=== PATIENT | male | born 1985 | race African-American/Black ===

== ENCOUNTER 2020-09-30 09:09 | Inpatient (IN) | payer MEDICAID ==
[~2020-09-30] VITALS: Ht 177.8 cm; Wt 72.6 kg
--- NOTE | 2020-09-30 09:09 | NUR ---
PT WALKED INTO ER WITH KNOWN COVID +, SOB AND WEAKNESS FOR A WEEK, ON ARRIVAL RA 84%, TACHYPNIC AND USING ACCESSORY MUSCLE. Addendum: 09/30/20 at 1032 by TRAE PT ALSO COUGHING FOR A WEEK.
[2020-09-30] MEDS ORDERED: DEXAMETHASONE SOD PHOSPHATE 4 MG INJ IV ONE (09:30)
[2020-09-30] MEDS ORDERED: DEXAMETHASONE SOD PHOSPHATE 4 MG INJ ONE (09:38)
[2020-09-30 09:56] LABS: BASOPHILS # (AUTO) 0.1 K/uL (0.0-8.0); BASOPHILS % (AUTO) 0.8 % (0.0-2.0); HEMATOCRIT 43.4 % (36.7-47.1); HEMOGLOBIN 14.7 g/dL (12.5-16.3); LYMPHOCYTES # (AUTO) 0.6 K/uL (20.0-40.0); LYMPHOCYTES % (AUTO) 5.8 % (20.5-51.5); MEAN CORPUSCULAR HEMOGLOBIN 27.4 uug (23.8-33.4); MEAN CORPUSCULAR HGB CONC 34 g/dL (32.5-36.3); MEAN CORPUSCULAR VOLUME 80.8 fL (73.0-96.2); MONOCYTES # (AUTO) 0.7 K/uL (2.0-10.0); MONOCYTES % (AUTO) 6.5 % (0.0-11.0); NEUTROPHILS # (AUTO) 9.1 K/uL (1.8-8.9); NEUTROPHILS % (AUTO) 86.9 % (38.5-71.5); PLATELET COUNT (AUTO) 300 K/uL (152-348); RED BLOOD CELL COUNT(AUTO) 5.37 MIL/uL (4.06-5.63); WHITE BLOOD COUNT (AUTO) 10.5 K/uL (3.6-10.2)
--- NOTE | 2020-09-30 10:00 | NUR ---
O2 SAT IMPROVED TO 99% WITH SIMPLE MASK, 5 LITRE OF O2. PT SEEMS MORE COMFORTABLE, KEEP MONITORING THE PT.
[2020-09-30 10:11] LABS: BILIRUBIN,DIRECT 0.1 mg/dL (0.0-0.2); BILIRUBIN,TOTAL 0.4 mg/dL (0.2-1.0); POTASSIUM 4.6 mmol/L (3.5-5.1); TOTAL PROTEIN, SERUM 8.8 g/dL (6.4-8.2)
--- NOTE | 2020-09-30 10:24 | NUR ---
DR. AMOS ACCEPTED THE PT TO TELE.
[2020-09-30] MEDS ORDERED: ACETAMINOPHEN 325 MG TABLET PO PRN (11:15)
[2020-09-30] MEDS ORDERED: ONDANSETRON 4 MG/2 ML VIAL IV PRN (11:15)
[2020-09-30] MEDS ORDERED: ALBUTEROL SULFATE 8 GM HFA.AER.AD IH PRN (11:15)
[2020-09-30] MEDS: ENOXAPARIN SODIUM 40 MG/0.4 ML DISP.SYRIN SQ SCH (11:26)
[2020-09-30] MEDS ORDERED: ENOXAPARIN SODIUM 40 MG/0.4 ML DISP.SYRIN SQ ONE (11:28)
[2020-09-30] MEDS ORDERED: AZITHROMYCIN 500MG/ D5W 250ML IVPB **ER PYXIS ONLY IV ONE (11:29)
[2020-09-30] MEDS: AZITHROMYCIN IV 500 MG in IV DEXTROSE 5% 250 ML IV SCH (11:30)
[2020-09-30] MEDS: ASPIRIN EC 81 MG TABLET.DR PO SCH (11:40)
[2020-09-30] MEDS ORDERED: ASPIRIN EC 81 MG TABLET.DR PO ONE (11:40)
[2020-09-30] MEDS ORDERED: PANTOPRAZOLE SODIUM 40 MG TABLET.DR PO ONE (11:43)
[2020-09-30] MEDS: PANTOPRAZOLE SODIUM 40 MG TABLET.DR PO SCH (11:46)
[2020-09-30 11:54] LABS: *BILIRUBIN,URIN NEGATIVE (NEGATIVE); *BLOOD, URINE NEGATIVE (NEGATIVE); *CLARITY,URINE CLEAR (CLEAR); *COLOR,URINE YELLOW (YELLOW); *KETONES,URINE NEGATIVE (NEGATIVE); *UROBILINOGEN,URINE 0.2 E.U./dl (NORMAL); LEUKOCYTE ESTERASE ,URINE NEGATIVE (NEGATIVE); NITRITE, URINE NEGATIVE (NEGATIVE); UGLUCOSE NEGATIVE (NEGATIVE)
--- NOTE | 2020-09-30 12:13 | NUR ---
transfered pt to floor in stable condition.
--- NOTE | 2020-09-30 12:45 | NUR ---
1205pm- Admitted to telemetry a 35 y.o male patient from ER with Dx: Covid and Acute hypoxemic respiratory failure. Patient is alert, oriented x4, able to make needs known. Denies pain. Breathing is even and non labored. No sob noted. On 6Lpm via simple mask, O2 saturation noted 100%. VS taken upon admission: Bp 124/77 RR20 P80 T100.8 O2 100%. Cooling measures initiated. Patient able to make needs known and encouraged to call for help if needed. Call light put within reach. Safety precautions in place. Needs attended. Will continue to monitor.
[2020-09-30] MEDS ORDERED: DEXA4TAB PO (14:59)
[2020-09-30] MEDS ORDERED: ALBU8HFA4 INH (14:59)
--- NOTE | 2020-09-30 15:44 | NUR ---
Patient's temperature rechecked and noted 98.6 degrees. Cooling measures effective. Will continue to monitor.
[2020-09-30 15:54] VITALS: BP 122/79
[2020-09-30] MEDS ORDERED: GUAIFENESIN/DEXTROMETHORPHAN 5 ML UDC PO PRN (16:45)
[2020-09-30 20:03] VITALS: BP 114/74
--- NOTE | 2020-09-30 21:00 | NUR ---
Received patient AAOx4. No s/s of acute distress noted at this time. Pt on 6L simple mask with O2 @ 100% denies SOB. special distribution clerk on place. Safety and isolation precautions in place.
[2020-10-01 00:12] VITALS: BP 110/69
[2020-10-01] MEDS: HYDROCODONE/APAP 5-325MG TABLET PO PRN ×3 (00:35→23:08)
[2020-10-01 04:15] VITALS: BP 106/72
[2020-10-01] MEDS: PANTOPRAZOLE SODIUM 40 MG TABLET.DR PO SCH (06:13)
[2020-10-01 06:18] LABS: BASOPHILS % (AUTO) 0.1 % (0.0-2.0); HEMATOCRIT 38.3 % (36.7-47.1); HEMOGLOBIN 12.8 g/dL (12.5-16.3); LYMPHOCYTES # (AUTO) 0.8 K/uL (20.0-40.0); LYMPHOCYTES % (AUTO) 9.7 % (20.5-51.5); MEAN CORPUSCULAR HGB CONC 33 g/dL (32.5-36.3); MEAN CORPUSCULAR VOLUME 80.8 fL (73.0-96.2); MONOCYTES # (AUTO) 0.9 K/uL (2.0-10.0); MONOCYTES % (AUTO) 10.5 % (0.0-11.0); NEUTROPHILS # (AUTO) 6.6 K/uL (1.8-8.9); NEUTROPHILS % (AUTO) 79.7 % (38.5-71.5); PLATELET COUNT (AUTO) 315 K/uL (152-348); RED BLOOD CELL COUNT(AUTO) 4.74 MIL/uL (4.06-5.63); WHITE BLOOD COUNT (AUTO) 8.2 K/uL (3.6-10.2)
[2020-10-01 06:55] LABS: BILIRUBIN,TOTAL 0.5 mg/dL (0.2-1.0); CREATININE 1.1 mg/dL (0.6-1.3); MAGNESIUM 2.2 mg/dL (1.8-2.4); POTASSIUM 4.8 mmol/L (3.5-5.1); TOTAL PROTEIN, SERUM 7.6 g/dL (6.4-8.2)
[2020-10-01] MEDS ORDERED: PANTOPRAZOLE SODIUM 40 MG TABLET.DR PO SCH (07:00)
[2020-10-01] MEDS ORDERED: ASPIRIN EC 81 MG TABLET.DR PO SCH (09:00)
[2020-10-01] MEDS: ASPIRIN EC 81 MG TABLET.DR PO SCH (09:38)
[2020-10-01] MEDS: CHOLECALCIFEROL 1,000 UNIT TABLET PO SCH (09:38)
[2020-10-01] MEDS: DEXAMETHASONE SOD PHOSPHATE 4 MG INJ IV SCH (09:39)
[2020-10-01] MEDS: ENOXAPARIN SODIUM 40 MG/0.4 ML DISP.SYRIN SQ SCH (09:40)
[2020-10-01] MEDS: AZITHROMYCIN IV 500 MG in IV DEXTROSE 5% 250 ML IV SCH (12:05)
[2020-10-01 12:30] VITALS: BP 121/81
[2020-10-01] MEDS: CEFTRIAXONE 1 G in IV DEXTROSE 5% 50 ML IV SCH (14:47)
[2020-10-01 16:00] VITALS: BP 115/70
--- NOTE | 2020-10-01 18:06 | NUR ---
patient AAOx4. No s/s of acute distress noted at this time. Pt on 4L simple mask with O2 @ 98% denies SOB. clinical research monitor on place. Safety and isolation precautions in place. needs attended to and met. will continue to monitor
[2020-10-01 20:12] VITALS: BP 110/73
[2020-10-02 00:15] VITALS: BP 103/67
[2020-10-02] MEDS ORDERED: ZOLPIDEM 5 MG TABLET PO PRN (00:15)
[2020-10-02 04:15] VITALS: BP 112/80
[2020-10-02] MEDS: PANTOPRAZOLE SODIUM 40 MG TABLET.DR PO SCH (06:25)
--- NOTE | 2020-10-02 06:41 | NUR ---
Pt stable throughout the shift. Denies any acute distress or pain at this time. V/S stable on 4L face mask saturating at 100%. NSR on tele monitor. Comfort care and needs attended. Isolation precaution maintained. Safety measures in place. Call light within reach. Will endorse to oncoming nurse accordingly
[2020-10-02] MEDS: CHOLECALCIFEROL 1,000 UNIT TABLET PO SCH (09:15)
[2020-10-02] MEDS: DEXAMETHASONE SOD PHOSPHATE 4 MG INJ IV SCH (09:16)
[2020-10-02] MEDS: ASPIRIN EC 81 MG TABLET.DR PO SCH (09:16)
[2020-10-02] MEDS: HYDROCODONE/APAP 5-325MG TABLET PO PRN (09:17)
[2020-10-02] MEDS: ENOXAPARIN SODIUM 40 MG/0.4 ML DISP.SYRIN SQ SCH (09:19)
[2020-10-02] MEDS: AZITHROMYCIN 250 MG TABLET PO SCH (11:23)
[2020-10-02 12:00] VITALS: BP 106/76
[2020-10-02] MEDS: CEFTRIAXONE 1 G in IV DEXTROSE 5% 50 ML IV SCH (13:57)
[2020-10-02 16:00] VITALS: BP 106/85
--- NOTE | 2020-10-02 19:30 | NUR ---
Pt received in bed resting, AOx4. Denies pain or SOB. On 4L NC sating at 100%.Pt is SR on monitor. Bed is locked and in lowest position. Call light is within reach. No other issues or concerns at this time.
[2020-10-02 20:12] VITALS: BP 118/77
[2020-10-03 00:15] VITALS: BP 108/69
[2020-10-03 04:15] VITALS: BP 103/70
[2020-10-03] MEDS: PANTOPRAZOLE SODIUM 40 MG TABLET.DR PO SCH (06:00)
[2020-10-03] MEDS: ASPIRIN EC 81 MG TABLET.DR PO SCH (08:38)
[2020-10-03] MEDS: AZITHROMYCIN 250 MG TABLET PO SCH (08:38)
[2020-10-03] MEDS: HYDROCODONE/APAP 5-325MG TABLET PO PRN (08:38)
[2020-10-03] MEDS: DEXAMETHASONE SOD PHOSPHATE 4 MG INJ IV SCH (08:39)
[2020-10-03] MEDS: CHOLECALCIFEROL 1,000 UNIT TABLET PO SCH (08:39)
[2020-10-03] MEDS: ENOXAPARIN SODIUM 40 MG/0.4 ML DISP.SYRIN SQ SCH (08:42)
[2020-10-03 09:38] LABS: BASOPHILS % (AUTO) 0.1 % (0.0-2.0); EOSINOPHILS % (AUTO) 0.2 % (0.0-7.0); HEMATOCRIT 43.5 % (36.7-47.1); HEMOGLOBIN 14.6 g/dL (12.5-16.3); LYMPHOCYTES # (AUTO) 1.4 K/uL (20.0-40.0); LYMPHOCYTES % (AUTO) 20.9 % (20.5-51.5); MEAN CORPUSCULAR HEMOGLOBIN 27.3 uug (23.8-33.4); MEAN CORPUSCULAR HGB CONC 34 g/dL (32.5-36.3); MEAN CORPUSCULAR VOLUME 81.5 fL (73.0-96.2); MONOCYTES # (AUTO) 0.6 K/uL (2.0-10.0); MONOCYTES % (AUTO) 8.9 % (0.0-11.0); NEUTROPHILS # (AUTO) 4.6 K/uL (1.8-8.9); NEUTROPHILS % (AUTO) 69.9 % (38.5-71.5); PLATELET COUNT (AUTO) 448 K/uL (152-348); RED BLOOD CELL COUNT(AUTO) 5.33 MIL/uL (4.06-5.63); WHITE BLOOD COUNT (AUTO) 6.6 K/uL (3.6-10.2)
[2020-10-03 10:01] LABS: CREATININE 1.1 mg/dL (0.6-1.3); MAGNESIUM 2.2 mg/dL (1.8-2.4); PHOSPHOROUS 2.8 mg/dL (2.5-4.9); POTASSIUM 3.9 mmol/L (3.5-5.1)
[2020-10-03] MEDS ORDERED: DEXA4TAB68 PO (11:10)
[2020-10-03] MEDS ORDERED: AZIT250T PO (11:10)
--- NOTE | 2020-10-03 11:30 | NUR ---
DR. BAKER HERE. PATIENT BEING TITRATED OFF O2. O2 SAT. ON 2L 100% AFTER 1 HOUR
[2020-10-03 11:50] VITALS: BP 115/74
[2020-10-03] MEDS: CEFTRIAXONE 1 G in IV DEXTROSE 5% 50 ML IV SCH (14:00)
--- NOTE | 2020-10-03 14:00 | NUR ---
O2 SAT 96-98 % ON R/A AFTER 1 HOUR. PREPARED FOR DISCHARGE. IV DC'D. ANGIOCATH REMOVED INTACT. WAITING FOR .
--- NOTE | 2020-10-03 15:30 | NUR ---
DISCHARGED VIA W/C TO IN AUTO. NO C/O DISCOMFORT.
== END 2020-10-03 15:30 | disposition home or self-care (01) | DRG 720 ==
LOC: ER 09:09 → TRANSITION 10:33 → TELE 11:58
PROVIDERS: ADMIT Internal Medicine; ATTEND Internal Medicine
DX: A41.89 Other specified sepsis (principal); U07.1 COVID-19; J12.82 Pneumonia due to coronavirus disease 2019; J96.01 Acute respiratory failure with hypoxia; E87.1 Hypo-osmolality and hyponatremia
CPT/HCPCS: 36415; 70030-TC; 71045; 83605; 83735; 84100; 85025; 85730; 86480; 86803; 87040; 87086; 87328; 87536; 93005; A4663; G0378; J0456; J0696; J1100; J1650; J3535; J7060; Q0144; U0003